=== PATIENT | male | born 1990 | race Caucasian/White ===

== ENCOUNTER 2017-07-31 01:15 | Emergency (ER) | payer BC, OTHER ==
[~2017-07-31] VITALS: Ht 170.2 cm; Wt 63.4 kg
[2017-07-31 01:19] VITALS: Ht 170.2 cm; Wt 63.4 kg
[2017-07-31 01:34] VITALS: TEMP 36.9
[2017-07-31] MEDS ORDERED: AMOX875T PO (01:39)
[2017-07-31] MEDS ORDERED: TRAM-10 PO (01:40)
[2017-07-31] MEDS ORDERED: CYCL10TA6 PO (01:41)
[2017-07-31] MEDS ORDERED: PRED10TA PO (01:42)
[2017-07-31] MEDS ORDERED: ONDANSETRON HOME PACK 4MG OD TAB PO ONE (01:45)
[2017-07-31] MEDS ORDERED: OXYCODONE IR HOME PACK PO ONE (01:45)
[2017-07-31] MEDS ORDERED: ONDA4TAB10 SL (01:51)
[2017-07-31] MEDS ORDERED: OXYC1TAB3 PO (01:51)
[2017-07-31 01:57] VITALS: BP 122/78; PULSE 71; O2SAT 99
--- NOTE | 2017-07-31 05:17 | EMERGENCY ROOM VISIT NOTE ---
ED Visit Note First contact with patient: 01:34 CHIEF COMPLAINT: Toothache HISTORY OF PRESENT ILLNESS: This 27-year-old male patient presented to the emergency department with a progressive toothache for past 3-4 days. He believes it is coming from the right upper side of his jaw. He did go to an urgent care clinic yesterday, and was started on amoxicillin. The patient was also given 3 total pills of tramadol and a muscle relaxer for possible TMJ. The patient has been taking these medications without significant improvement of symptoms. He states that he was unable to sleep tonight, essentially laying in bed for the past 3-4 hours with pain. He does have an appointment with ENT for the possible TMJ, but does not have an appointment with a dentist as scheduled. He has not had fever or chills. He rates his discomfort a dull 8/ 10. REVIEW OF SYSTEMS: A 6 system review of systems was completed with positives and pertinent negatives listed in the HPI. ALLERGIES: No known allergies MEDICATIONS: No chronic medication PMH: Otherwise healthy SOCIAL HISTORY: Lives locally PHYSICAL EXAM: Vitals are noted on the nurse's note and reviewed by myself. Vital signs stable. GENERAL: White male, in no acute distress, nondiaphoretic, well-developed well- nourished. Mouth: The right upper molars #1 and #2 tooth is very carious and the gum is swollen and tender around it, without any discharge or signs of an abscess. The remainder of the pharynx and tonsils are without erythema, edema, or exudate. The airway is patent. There is no facial swelling, cervical or submandibular lymphadenopathy. The patient appears uncomfortable and in pain. The patient has overall fair dental hygiene. EARS: External auditory canals clear, tympanic membranes pearly gibbons without erythema or effusion bilaterally. HEART: Regular rate and rhythm without murmur gallop or rub LUNG: Clear to auscultation bilateral ED COURSE: Physical exam and history were performed. Nursing notes and EMR were reviewed. On examination the patient appears to have some mouth/dental pain. I do not appreciate obvious TMJ dysfunction, and suspect that his symptoms are much more likely related to his teeth. He has multiple teeth with fillings and decay. I do not appreciate distinct abscess or Ludwigs. The patient is on amoxicillin, which reveals appropriate. I will give him a short course of OxyIR for pain control. I will also give him a short course of Zofran and sometimes narcotics make him nauseated. He does not have worrisome findings in the PDMP. He needs to follow with a dentist for definitive care and was otherwise invited back to ER with any new, worsening, or concerning symptoms. Current/Historical Medications Scheduled Amoxicillin & Pot Clavulanate (Augmentin 875-125 mg), 1 TAB PO BID Ondasetron Odt (Zofran Odt), 4 MG SL Q6H Oxycodone Immediate Rel Tab (Roxicodone Ir), 5 MG PO Q6H Prednisone Tab (Prednisone), 10 MG PO DAILY/UD Scheduled PRN Cyclobenzaprine Hcl (Flexeril), 10 MG PO TID PRN for SPASMS Tramadol (Ultram), 50 MG PO Q8H PRN for Pain Allergies Coded Allergies: No Known Allergies (Unverified , 07/31/17) Vital Signs Date Time Temp Pulse Resp B/P (MAP) Pulse Ox O2 Delivery O2 Flow Rate FiO2 07/31/17 01:57 71 18 122/78 99 07/31/17 01:34 36.9 07/31/17 01:19 69 20 140/84 100 Room Air Medications Administered Medications (Trade) Dose Ordered Sig/Lluvia Route Start Time Stop Time Status Last Admin Dose Admin Oxycodone HCl (Roxicodone Immediate Rel 5MG Home Pack) 1 homepack UD ONCE PO 07/31/17 01:45 07/31/17 01:46 DC 07/31/17 01:55 1 HOMEPACK Ondansetron HCl (ZOFRAN ODT 4MG Home Pack) 1 homepack UD ONCE PO 07/31/17 01:45 07/31/17 01:46 DC 07/31/17 01:55 1 HOMEPACK Departure Information Impression Primary Impression: Pain in mouth Dispostion Home / Self-Care Condition GOOD Prescriptions Ondasetron Odt (ZOFRAN ODT) 4 Mg Tab 4 MG SL Q6H for Nausea, #8 TAB Prov: Zaid Ivey PA-C 07/31/17 Oxycodone Immediate Rel Tab (ROXICODONE IR) 5 Mg Tab 5 MG PO Q6H, #8 TAB Prov: Zaid Ivey PA-C 07/31/17 Forms HOME CARE DOCUMENTATION FORM, IMPORTANT VISIT INFORMATION Patient Instructions My [facility] Additional Instructions You were seen and evaluated today on an emergency basis only. This is not a substitute for, or an effort to provide, complete comprehensive medical care. It is not possible to recognize and treat all injuries or illnesses in a single emergency department visit. For this reason it is recommended that you followup with the dentist as soon as possible for definitive care. Continue antibiotics as previously prescribed. Oxycodone (OxyIR) 5mg: Take ONE pill every SIX hours for breakthrough pain. Avoid alcohol, operating machinery or dangerous equipment, working on ladders or roofs, DRIVING, or situations where being under the influence may be dangerous. It is recommended to use an [id number] stool softener such as Colace, 100mg twice daily while taking this medication to avoid constipation. Zofran 4 mg ODT: Dissolve 1 tablet every 6 hrs as needed for nausea. You are welcome to return to the emergency department anytime with new, worsening, or concerning symptoms.
== END 2017-07-31 01:58 | disposition home or self-care (01) ==
LOC: C.EDB 01:16 → C.EDA 01:58
DX: K13.79 Other lesions of oral mucosa (principal); Z79.899 Other long term (current) drug therapy